=== PATIENT | male | born 1990 | race Two or more races ===

== ENCOUNTER 2018-01-07 18:53 | Emergency (ER) | payer SELFPAY ==
[2018-01-07 19:07] VITALS: BP 143/98; PULSE 80; TEMP 98.1; BMI 36.0
[2018-01-07] MEDS ORDERED: KETOROLAC TROMETHAMINE 30 MG/1 ML VIAL IVPUSH ONE (19:40)
--- NOTE | 2018-01-07 19:44 | PDOC ---
History of Present Illness - General Chief Complaint: Pain, Acute Stated Complaint: Right sided pain/R. abdomen and testicle Time Seen by Provider: 01/07/18 19:14 History Source: Patient - History of Present Illness Initial Comments: 01/07/18 19:38 27M w/ no significant pmhx presents in the ED for R flank pain. Pt states the pain started 3 hours prior to coming to the ED and rates it 8/10. Pain is constant and radiates to the back as well as to the R testicle. He states he has never had this pain before and has only taken Advil today. The pain started suddenly today while driving. It is worsened when standing and laying down on his back, but alleviated when laying down on his stomach. Denies chest pain, sob , cough, abd pain, urinary/bowel symptoms, blood in urine/stool. Denies hx of heart/lung disease, kidney stones, abd surgeries. Admits to good PO intake, last BM this morning, normal, nonbloody. Currently sexually active with 1 female partner, does not use protection, no hx of STDs. Admits to chronic headache, usually alleviated by Advil. Denies taking any other daily medications. Of note, pt admits more heavy lifting than usual at work yesterday with associated back pain at the time. PCP: Dr. Lott (last seen 1.5 years ago) PMHx: Denies PSHx: Denies FHx: Paternal side- breast and lung cx; Mother-hx of kidney stones Social: Denies tobacco and rec drug use; social drinker Currently works at [employer], does heavy lifting at job 01/07/18 20:57 01/07/18 21:01 Past History - Past Medical History Allergies/Adverse Reactions: Allergies Allergy/AdvReac Type Severity Reaction Status Date / Time No Known Allergies Allergy Verified 01/07/18 19:06 Home Medications: Ambulatory Orders Ibuprofen 600 mg PO Q6H #20 tablet 01/07/18 Ondansetron [Zofran -] 4 mg PO TID #21 tablet 01/07/18 levoFLOXacin [Levaquin] 750 mg PO DAILY #7 tab 01/07/18 - Suicide/Smoking/Psychosocial Hx Smoking History: Never smoked Have you smoked in the past 12 months: No Information on smoking cessation initiated: No Hx Alcohol Use: No Drug/Substance Use Hx: No Review of Systems - Review of Systems Able to Perform ROS?: Yes Is the patient limited Barbadian proficient: No Constitutional: Yes: Chills. No: Fever, Loss of Appetite HEENTM: No: Recent change in vision Respiratory: No: Cough, Shortness of Breath, SOB at Rest, Wheezing Cardiac (ROS): No: Chest Pain ABD/GI: Yes: See HPI. No: Abd. Pain w/ defecation, Constipated, Diarrhea, Nausea, Rectal Bleeding, Vomiting, Abdominal cramping : Yes: Flank Pain (right), Testicular Pain (Right). No: Dysuria, Hematuria, Testicular Mass Musculoskeletal: No: Back Pain, Muscle Weakness, Joint Stiffness Neurological: Yes: Headache (chronic). No: Unsteady Gait, Dizziness *Physical Exam - Vital Signs Last Vital Signs Temp Pulse Resp BP Pulse Ox 98.1 F 80 16 143/98 100 01/07/18 19:04 01/07/18 19:04 01/07/18 19:04 01/07/18 19:04 01/07/18 19:04 - Physical Exam General Appearance: Yes: Appropriately Dressed, Obese HEENT: positive: EOMI, ZAKIYA, Normal Voice, Pharynx Normal Respiratory/Chest: positive: Lungs Clear, Normal Breath Sounds Cardiovascular: positive: Regular Rhythm, Regular Rate, S1, S2. negative: Murmur Vascular Pulses: Dorsalis-Pedis (R): 2+, Doralis-Pedis (L): 2+ Gastrointestinal/Abdominal: positive: Normal Bowel Sounds, Soft, Other ((-) Reid's sign, Rovsing, McBurneys pt) Male Genitalia: positive: normal genitalia. 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 -Ddx includes nephrolithiasis vs. hydronephrosis vs. biliary colic vs. cholelithiasis vs. musculoskeletal etiology -CBC/CMP, U/A, UCx, Toradol 30 mg IVPB, NS -Bedside u/s perfomed: no evidence of hydronephrosis or renal stones noted; (-) sonographic Reid's sign, gallstones, GB wall thickening -Will obtain non-contrast spiral CT for further eval 01/07/18 20:54 Pt re-assessed, admits to significant symptomatic improvement after IV Toradol given. -WBC 14.3, pt afebrile at this time. -await spiral CT results 01/07/18 21:43 -Spiral CT showed: mod R hydronephrosis 2/2 to an obstructin 3 mm proximal R ureteral calculus. There is associated R perinephric stranding. -Discussed with pt that flank pain is likely due to passage of R kidney stone. -Case discussed with Dr. Villarreal (urology). Recommended to give pt 1 dose of Ceftriaxone and discharge pt home with PO Levaquin with outpatient follow up in the office. Advised pt of urology's recommendations. Pt admits to symptomatic improvement and agreed to f/u with Dr. Villarreal this week. Will also prescribe Zofran for nausea and ibuprofen for pain. DC to home. Case discussed with Dr. Cuenca (ED attending). Yaz Glass DO - PGY1 *DC/Admit/Observation/Transfer Diagnosis at time of Disposition: Kidney stone on right side - Discharge Dispostion Disposition: HOME Condition at time of disposition: Good Decision to Admit order: No - Prescriptions Prescriptions: Ibuprofen 600 mg PO Q6H #20 tablet levoFLOXacin [Levaquin] 750 mg PO DAILY #7 tab Ondansetron [Zofran -] 4 mg PO TID #21 tablet - Referrals Referrals: Holland Villarreal MD., MD [Staff Physician] - - Patient Instructions Printed Discharge Instructions: DI for Kidney Stones Additional Instructions: You were seen in the ED for complaints of right flank pain. In the ED, a CT of your kidneys were done and you were found to have a 3mm kidney stone in your right kidney causing your right flank pain. You were given Ketoralac for pain and your symptoms improved. You were given Ceftriaxone for antibiotic therapy. There is no acute need for hospitalization at this time. You are being discharged home. MEDICAL RECOMMENDATIONS: Please take Zofran 4 mg three times a day for nausea. Please take Ibuprofen 600 mg every 6 hours for pain. Please take Levaquin for 750 mg once a day for 7 days. CONSULT RECOMMENDATIONS: Please make an appointment with the urologist this week. You have been given a referral to see Dr. Villarreal. If you experience worsening flank or back pain, pain during urination, blood in urine/stool, persistent chest pain or shortness of breath, please proceed to your nearest emergency room immediately. - Post Discharge Activity Forms/Work/School Notes: Back to Work
[2018-01-07] MEDS ORDERED: SODIUM CHLORIDE 1,000 ML IV STA (19:52)
[2018-01-07] MEDS ORDERED: KETOROLAC TROMETHAMINE 30 MG/1 ML VIAL ONE (19:54)
[2018-01-07 20:48] LABS: BASO % 0.4 % (0-2.0); EOS % 0.1 % (0-4.5); HEMOGLOBIN 16.3 GM/dL (11.7-16.9); LYMPH % 10.1 % (8-40); MCH 29.5 pg (25.7-33.7); MEAN CELL VOLUME 86.6 fl (80-96); MEAN PLT VOLUME 7.4 fl (7.5-11.1); MONO % 3.3 % (3.8-10.2); NEUT % 86.1 % (42.8-82.8); PLATELET COUNT 378 K/MM3 (134-434); RBC 5.55 M/mm3 (4.00-5.60); RDW 13.9 % (11.9-15.9); WHITE BLOOD COUNT 14.3 K/mm3 (4.0-10.0)
--- NOTE | 2018-01-07 21:31 | PDOC ---
Attending Attestation - Resident Resident Name: Yaz Glass - ED Attending Attestation I have performed the following: I have examined & evaluated the patient, The case was reviewed & discussed with the resident, I agree w/resident's findings & plan - HPI HPI: 01/07/18 21:28 Foster 27 YOM with no significant history presenting with right flank pain 3 hours prior to arrival. Patient describes the right flank pain as sudden onset while driving, constant, 8/10 in severity, with radiation to the right back and right testicle that is exacerbated with lying down. Patient denies similar symptom in the pain. Patient denies history of kidney stones or abdominal surgeries in the past. +family history of kidney stones in mother. Admits to heavy lifting for work yesterday Patient denies any urinary symptoms. Patient is sexually active with one partner , does not use protection. The patient denies chest pain, shortness of breath, headache and dizziness. Denies fever, chills, nausea, vomit, diarrhea and constipation. Denies dysuria, frequency, urgency and hematuria. Allergies: NKA Past surgical history: None reported. Social history: No reported alcohol, drug or cigarette use. 01/07/18 21:30 - Physicial Exam PE: 01/07/18 23:10 NAD, well appearing, PERRL, EOMI, MMM, nl conjunctiva, anicteric; neck supple. lungs clear, RRR, abdomen soft nontender. no CVAT. SINGER x4, no focal neuro deficits. No peripheral edema. normal color for ethnicity, WWP. - Medical Decision Making 01/07/18 21:29 Foster 27 YOM with no medical history presenting with acute onset right flank pain [employer], radiating to his right groin.. no urinary sx, f/c, n/v/d. DDx abdominal pain: Renal colic, biliary colic, metabolic/electrolyte derangements. GERD, PUD, esophageal spasm, pancreatitis, hepatitis, constipation , colitis, gastroenteritis, cholecystitis, UTI, pyelonephritis Vital signs reviewed, wnl. no fever. Prior notes reviewed, including admissions, discharges and consultations. laboratory results and imaging reviewed, basic labs and lytes wnl, notable for + leukocytosis. Cr and lytes normal, UA_with blood, no s/s infection. c/w suspected renal colic/stone. Gallbladder was scanned in two planes both sagitally and transverse using the curvilinear probe and/or phased array probe. no stones/s/s acute cholecystitis, no sono san's ED course: no acute events, remained stable and well appearing. Clinically improved after interventions, including toradol, IVF. CT a/p alexy with right 3mm obstructing prox ureteral stone with perinephric stranding and hydro IV ceftriaxone here. declines opioids, which is appropriate. NSAIDS/tylenol for mild to moderate pain. zofran for nausea, adequate hydration and oral fluids and air conditioning in hot weather. literature/evidence low for flomax benefit, so defer. urine strainer to catch urine. return precautions discussed including worsening s/s, fevers/systemic symptoms, inability to tolerate PO, worsening abdominal pain sx, dehydration, vomiting or other changes. Urology follow up with Urology referral Dr. Vinicio DC with levaquin x 10 day course, outpatient followup appropriate. Drink plenty of water Strain all urine for the next 1-2 days and save any stone for analysis Ibuprofen/naproxen/acetaminophen as needed for [id number] pain Return to ER if you experience persistent pain/vomiting/fever/dehydration or inability to tolerate oral intake. Follow-up with your general doctor within the next 2-3 days. Urologist referral given as well. 01/07/18 23:10 Procedures - Bedside Ultrasound Bedside Ultrasound: Gallbladder Remarks: 01/07/18 21:28 POCUS biliary exam: Indication: abdominal pain Views: gallbladder long and s hort axis, Findings: no stones or GB wall thickening or pericholecystic fluid, normal CBD < 3mm for age. Neg sono murphys Impression: no acute findings. No cholelithiasis or cholecystitis. 01/07/18 23:06
[2018-01-07 21:50] LABS: URINE APPEARANCE SLCLOUDY; URINE BILIRUBIN NEGATIVE (<2.0 mg/dL); URINE COLOR YELLOW; URINE GLUCOSE (UA) NEGATIVE (NEGATIVE); URINE KETONE NEGATIVE (NEGATIVE); URINE LEUK ESTERASE NEGATIVE (NEGATIVE); URINE NITRITE NEGATIVE (NEGATIVE); URINE PROTEIN NEGATIVE (NEGATIVE); URINE UROBILINOGEN NEGATIVE mg/dL (0.2-1.0)
[2018-01-07 21:53] LABS: URINE BACTERIA RARE /hpf (NONE SEEN); URINE MUCUS RARE
[2018-01-07 22:41] LABS: ALBUMIN 3.8 g/dl (3.4-5.0); ALK PHOS 63 U/L (45-117); ANION GAP 8 MMOL/L (8-16); BILIRUBIN,TOTAL 0.4 mg/dL (0.2-1); BLOOD UREA NITROGEN 16 mg/dL (7-18); CALCIUM 8.7 mg/dL (8.5-10.1); CHLORIDE 105 mmol/L (98-107); CO2 26 mmol/L (21-32); CREATININE 1.3 mg/dL (0.55-1.3); GLUCOSE,RANDOM 116 mg/dL (74-106); POTASSIUM 4.1 mmol/L (3.5-5.1); SGOT/AST 35 U/L (15-37); SGPT/ALT 56 U/L (13-61); SODIUM 139 mmol/L (136-145); TOT PROT 7.4 g/dl (6.4-8.2)
[2018-01-07] MEDS ORDERED: CEFTRIAXONE 1 GM in DEXTROSE 5%-WATER - 100 ML IVPB ONE (23:09)
[2018-01-07] MEDS ORDERED: CEFTRIAXONE 1 GM/50 ML BAG ONE (23:41)
== END 2018-01-08 00:37 | disposition home or self-care (01) ==
LOC: JER 18:53
PROC: 3E0337Z Introduction of Electrolytic and Water Balance Substance into Peripheral Vein, Percutaneous Approach (ICD-10-PCS; principal; 2018-01-07)
PROC: 3E03329 Introduction of Other Anti-infective into Peripheral Vein, Percutaneous Approach (ICD-10-PCS; 2018-01-07)
PROC: 3E0333Z Introduction of Anti-inflammatory into Peripheral Vein, Percutaneous Approach (ICD-10-PCS; 2018-01-07)
DX: N13.2 Hydronephrosis with renal and ureteral calculous obstruction (principal)
CPT/HCPCS: 36415; 74176; 80053; 81003; 81015; 85025; 87086; 99282-25; J7030